=== PATIENT | female | born 1995 | race American Indian/Alaskan Native ===

== ENCOUNTER 2016-07-26 19:00 | Emergency (ER) | payer SELFPAY ==
[2016-07-26] MEDS ORDERED: DELTASONE ONE (19:40)
[2016-07-26] MEDS ORDERED: BENADRYL PO ONE ×2 (19:40)
[2016-07-26] MEDS ORDERED: DELTASONE PO ONE (19:40)
[2016-07-26] MEDS ORDERED: PEPCID PO ONE (19:40)
[2016-07-26] MEDS ORDERED: PEPCID ONE (19:41)
[2016-07-26] MEDS ORDERED: TYLENOL ONE (19:59)
[2016-07-26] MEDS ORDERED: TYLENOL PO ONE (20:47)
--- NOTE | 2016-07-26 21:00 | Emergency Department Report ---
HPI - General Chief Complaint: Allergic Reaction - HPI HPI: 20-year-old -French female comes in for allergic reaction to mushrooms approximately 6 PM today. Patient reports that her sister has felt a mushrooms onions when a burger and she had consumed about 3 bites when she noticed that her throat started to swell was having difficulty swallowing. Patient reports she was not aware that the mushrooms were on the burger. Allergic protocol was administered in triage patient was giving Pepcid Benadryl and Solu-Medrol which patient reports some relief. Patient denies any wheezing no shortness of breath no difficulty swallowing. ED Past Medical Hx - Past Medical History Previous Medical History?: Yes Hx Seizures: Yes (As a child) - Surgical History Past Surgical History?: Yes Additional Surgical History: Ectopic Preg - Social History Smoking Status: Never Smoker Substance Use Type: Alcohol - Medications Home Medications: Home Medications Medication Instructions Recorded Confirmed Last Taken Type Famotidine [Pepcid] 40 mg PO QHS #5 tablet 07/26/16 Unknown Rx diphenhydrAMINE [Benadryl CAP] 25 mg PO Q8HR PRN #15 capsule 07/26/16 Unknown Rx predniSONE [Deltasone] 20 mg PO QDAY #5 tab 07/26/16 Unknown Rx ED Review of Systems ROS: Stated complaint: ALLERGIC REACTION Other details as noted in HPI Constitutional: denies: chills, fever Respiratory: denies: cough, shortness of breath, wheezing Cardiovascular: denies: chest pain, palpitations Physical Exam - Physical Exam Vital Signs: Vital Signs 07/26/16 19:40 Temperature 98.4 F Pulse Rate 66 Respiratory 20 Rate Blood Pressure 136/67 [Right] O2 Sat by Pulse 100 Oximetry General: GENERAL: Alert and oriented x3, no apparent distress, Normal Gait, atraumatic. Physical Exam: HEAD: Head is normocephalic and a-traumatic. EYES: Extra ocular muscles are intact. Pupils are equal, round, and reactive to light and accommodation. MOUTH:Mouth is well hydrated and without lesions. Tonsils nonerythematous or swollen, Uvula midline, Tongue not elevated. Mucous membranes are moist. Posterior pharynx clear, no exudate or lesions. Patent airways. NECK: Supple. Non edematous, No carotid bruits. No lymphadenopathy or thyromegaly. LUNGS: Symetrical with respiration, No wheezing, no rales or crackles, CTAB. HEART: S1, S2 present, regular rate and rhythm without murmur, no rubs, no gallops. NEUROLOGIC: No focal Deficit, Cranial nerves II through XII are grossly intact. No loss of sensation, No facial droop, Negative rhomberg. PSYCHIATRIC: Mood is congruent with affect, denies suicidal or homicidal ideations. SKIN: Warm and dry, No lesions, No ulceration or induration present ED Course Vital Signs 07/26/16 19:40 Temperature 98.4 F Pulse Rate 66 Respiratory 20 Rate Blood Pressure 136/67 [Right] O2 Sat by Pulse 100 Oximetry ED Medical Decision Making - Medical Decision Making Assessment evaluated by this provider in fast track. Allergic reaction protocol was activated in triage. Patient was given Pepcid and Benadryl and Solu-Medrol. We will discharge patient on Pepcid 40 mg daily for 1 week and prednisone 20 mg by mouth for 4 days as well as Benadryl 25 mg every 8 hours when necessary Critical care attestation.: If time is entered above; I have spent that time in minutes in the direct care of this critically ill patient, excluding procedure time. ED Disposition Clinical Impression: Allergic reaction Qualifiers: Encounter type: initial encounter Qualified Code(s): T78.40XA - Allergy, unspecified, initial encounter Disposition: DISCHARGED TO HOME OR SELFCARE Is pt being admited?: No Does the pt Need Aspirin: No Condition: Stable Instructions: Food Allergy (ED), Allergies (ED) Additional Instructions: Please take medication as prescribed. Please avoid mushrooms. Symptoms persists or gets worse follow up in emergency room Prescriptions: Famotidine [Pepcid] 40 mg PO QHS #5 tablet diphenhydrAMINE [Benadryl CAP] 25 mg PO Q8HR PRN #15 capsule PRN Reason: Allergic Reaction predniSONE [Deltasone] 20 mg PO QDAY #5 tab Forms: Work/School Release Form(ED)
[2016-07-26 21:29] VITALS: BP 153/96
== END 2016-07-26 21:26 | disposition home or self-care (01) ==
LOC: ED 19:00
DX: T78.1XXA Other adverse food reactions, not elsewhere classified, initial encounter (principal); R56.9 Unspecified convulsions; X58.XXXA Exposure to other specified factors, initial encounter; Z91.030 Bee allergy status; Z91.018 Allergy to other foods
CPT/HCPCS: 99282; J7512